=== PATIENT | female | born 1955 | race Caucasian/White ===

== ENCOUNTER 2021-12-30 12:42 | Outpatient (CLI) | payer OTHER, SELFPAY ==
--- NOTE | 2021-12-31 11:36 | WPDNEUROLOGY ---
Neurology EEG Report General Information Date of Study: 12/30/21 TEST eeg DIAGNOSIS unspecified convulsions CONDITION OF RECORDING awake drowsy and sleep EEG NUMBER [id number] CLINICAL HISTORY patient reports 4 months ago she had a stroke with seizure-like activity. Has had no lasting symptoms from stroke and no problems since then. EEG DESCRIPTION Basic resting occipital frequency consists of well-organized medium voltage 8 to 9 hertz per 2nd alpha admixed with low-voltage 15 to 18 hertz per 2nd beta Beta activity seen diffusely admixed with waxing and waning posterior alpha rhythm. Bilateral symmetrical sleep activity seen during sleep. Hyperventilation not done. Photic stimulation produced normal drive. Non paroxysmal nonfocal nonlateralizing.. IMPRESSION No significant abnormalities noted
== END 2021-12-30 12:43 | disposition home or self-care (01) ==
LOC: ANHNEURO 12:47
PROVIDERS: PCP Internal Medicine; Visit Provider Psychiatry & Neurology Neurology
DX: R56.9 Unspecified convulsions (principal)
CPT/HCPCS: 95816